=== PATIENT | male | born 1995 | race Caucasian/White ===

== ENCOUNTER 2023-03-09 11:25 | Outpatient (CLI) | payer BC, SELFPAY ==
[2023-03-09 11:43] LABS: Post Vasectomy Sperm Presence None Seen (None Seen)
== END 2023-03-09 11:26 | disposition home or self-care (01) ==
LOC: CHSLAB 11:31
PROVIDERS: PCP Family Medicine; Visit Provider Family Medicine
DX: Z30.09 Encounter for other general counseling and advice on contraception (principal)
CPT/HCPCS: 88160; 89321